=== PATIENT | male | born 1940 | race Two or more races ===

== ENCOUNTER → 2019-12-28 | Outpatient (CLI) | payer MEDICARE ==
[~2019-12-28] MED LIST: ALBU8.5H8 INH; AMLO-150 PO; APIX5TAB PO; FINA5TAB4 PO; FLUT1DIS3 INH; LISI40TA PO; PANT40TA6 PO; SIMV40TA20 PO; TAMS-11 PO; TRAZ50TA66 PO; ZOLP5TAB6 PO
[2019-12-28 15:21] LABS: ALBUMIN 4.1 g/dL (3.4-5.0); ANION GAP 7 mmol/L (5-15); CHLORIDE 111 mmol/L (98-107)
[2019-12-28 15:25] LABS: ALANINE AMINOTRANSFERASE 21 U/L (12-78); ALKALINE PHOSPHATASE 77 U/L (45-117); BILIRUBIN,TOTAL 0.8 mg/dL (0.2-1.0); CREATININE 1.47 mg/dL (0.7-1.3); TOTAL PROTEIN 7.7 g/dL (6.4-8.2)
== END | disposition home or self-care (01) ==
LOC: STAR 13:41
PROVIDERS: ATTEND Internal Medicine Gastroenterology
DX: Z01.818 Encounter for other preprocedural examination (principal); Z20.828 Contact with and (suspected) exposure to other viral communicable diseases; R10.84 Generalized abdominal pain; R11.12 Projectile vomiting; I25.10 Atherosclerotic heart disease of native coronary artery without angina pectoris; Z12.11 Encounter for screening for malignant neoplasm of colon; K21.9 Gastro-esophageal reflux disease without esophagitis; Z95.0 Presence of cardiac pacemaker
CPT/HCPCS: 36415; 80053; 87635; 93005

== ENCOUNTER 2020-01-01 08:24 | Day surgery (SDC) | payer MEDICARE ==
[~2020-01-01] VITALS: Ht 175.3 cm; Wt 69.8 kg
[2020-01-01] MEDS ORDERED: LACTATED RINGERS 1,000 ML IV SCH (08:56)
[2020-01-01] MEDS ORDERED: CHLORHEXIDINE 15 ML UDC MM ONE (09:00)
[2020-01-01] MEDS ORDERED: MIDAZOLAM 1 MG/ML, 2ML ONE (09:51)
[2020-01-01] MEDS ORDERED: FENTANYL PF 100 MCG/2ML ONE (09:52)
[2020-01-01] MEDS ORDERED: LABETALOL 5MG/ML, 20ML IV PRN (10:00)
[2020-01-01] MEDS ORDERED: MEPERIDINE/PF 25MG/0.5ML IVPush PRN (10:00)
[2020-01-01] MEDS ORDERED: ONDANSETRON 2MG/ML, 2ML IVPush PRN (10:00)
[2020-01-01] MEDS ORDERED: FENTANYL PF 100 MCG/2ML IV PRN (10:00)
[2020-01-01] MEDS ORDERED: morphine SULFATE 10 MG/ML, 1ML IVPush PRN (10:00)
[2020-01-01] MEDS ORDERED: HYDROcodone/APAP 7.5-325MG/15ML UDC PO PRN (10:00)
[2020-01-01] MEDS ORDERED: PROMETHAZINE 25 MG/ML, 1ML IVPush PRN (10:00)
[2020-01-01] MEDS ORDERED: hydrALAzine 20 MG/ML, 1ML IV PRN (10:00)
[2020-01-01] MEDS ORDERED: PROPOFOL 10 MG/ML, 20ML ONE (10:28)
== END 2020-01-01 12:30 | disposition home or self-care (01) ==
LOC: OUT 08:24
PROVIDERS: ATTEND Internal Medicine Gastroenterology
DX: R11.2 Nausea with vomiting, unspecified (principal); D17.5 Benign lipomatous neoplasm of intra-abdominal organs; K22.8 Other specified diseases of esophagus; K57.30 Diverticulosis of large intestine without perforation or abscess without bleeding; K44.9 Diaphragmatic hernia without obstruction or gangrene; J44.9 Chronic obstructive pulmonary disease, unspecified; E78.00 Pure hypercholesterolemia, unspecified; I25.10 Atherosclerotic heart disease of native coronary artery without angina pectoris; I10 Essential (primary) hypertension; K21.9 Gastro-esophageal reflux disease without esophagitis; R10.9 Unspecified abdominal pain; I48.91 Unspecified atrial fibrillation; Z79.899 Other long term (current) drug therapy; Z95.0 Presence of cardiac pacemaker; Z98.890 Other specified postprocedural states; Z90.49 Acquired absence of other specified parts of digestive tract; Z79.01 Long term (current) use of anticoagulants; Z87.891 Personal history of nicotine dependence
CPT/HCPCS: 43235; 45380; 88305; J2250; J2704; J3010; J7120